=== PATIENT | male | born 1985 | race Two or more races ===

== ENCOUNTER → 2025-10-09 | Emergency (ER) | payer OTHER ==
[~2025-10-09] VITALS: Ht 177.8 cm; Wt 76.2 kg
[~2025-10-09] MED LIST: ACETAMINOPHEN 500 MG GEL..CAP PO ONE; BENZONATATE100 MG PO; FLONASE16 GM IH; GUAIFENESIN 200 MG/10 ML BLIST.PACK PO ONE; GUAIFENESIN/DEXTROMETHORPHAN 100MG/10ML BLIST.PACK PO ONE; METHYLPREDNISOLONE SOD SUCC 125 MG VIAL IV ONE; METHYLPREDNISOLONE SOD SUCC 125 MG VIAL ONE; MUCINEX600 MG PO; NEURONTIN300 MG PO; SEPTRA DS TABLE1 TAB PO; SKELAXIN800 MG PO; SODIUM CHLORIDE FOR INHALATION 1 VIAL.NEB IH ONE
[2025-10-09 11:16] LABS: BASO % 0.6 % (0.1-1.2); EOS # 0.13 (0.04-0.54); EOS % 1.9 % (0.7-7.0); LYMPH # 0.93 (1.18-3.74); LYMPH % 13.3 % (19.3-53.1); MEAN PLATELET VOLUME 10.10 fl (9.4-12.4); MONO # 0.86 (0.24-0.82); NEUT # 5.02 (1.56-6.13); NEUT % 71.8 % (34.0-71.1); RED CELL DISTRIBUTION WIDTH 13.2 % (11.6-14.4)
[2025-10-09 11:20] LABS: MONO % 12.3 % (4.7-12.5)
[2025-10-09 11:38] LABS: ALT/SGPT 33.0 U/L (12-78); AST/SGOT 21.0 U/L (15-37); BILIRUBIN TOTAL 0.39 mg/dL (0.3-1.2); BUN CREA RATIO 15.0 (7.0-25.0); CREATININE SERUM 1.05 mg/dL (0.70-1.30); GFR 77.84; GLOBULINA 3.6 G/DL (2.4-3.5); GLUCOSE FASTING 95.0 mg/dL (65-100); OSMOLALITY SERUM 279.0 MOSM/KG (275-295)
[2025-10-09 12:40] LABS: COVID-19 AG NEGATIVE (NEGATIVE)
== END | disposition home or self-care (01) ==
LOC: ER 09:04
DX: B34.9 Viral infection, unspecified (principal); R05.8 Other specified cough; R06.02 Shortness of breath; R53.1 Weakness; J34.89 Other specified disorders of nose and nasal sinuses; Z20.822 Contact with and (suspected) exposure to COVID-19; Z88.0 Allergy status to penicillin